=== PATIENT | male | born 1960 | race African-American/Black ===

== ENCOUNTER 2022-05-19 14:26 | Emergency (ER) | payer MEDICAID ==
[~2022-05-19] VITALS: Ht 167.6 cm; Wt 68.0 kg
[2022-05-19 14:57] VITALS: BP 127/98
== END 2022-05-19 18:56 | disposition left against medical advice (07) ==
LOC: ER 14:26
DX: Z53.21 Procedure and treatment not carried out due to patient leaving prior to being seen by health care provider (principal)